=== PATIENT | female | born 1995 | race African-American/Black ===

== ENCOUNTER 2024-07-24 14:40 | Emergency (ER) | payer OTHER ==
[~2024-07-24] VITALS: Ht 170.2 cm; Wt 70.0 kg
[2024-07-24] MEDS ORDERED: ONDANSETRON HCl 4 MG/2 ML SDV IV ONE (14:50)
[2024-07-24] MEDS ORDERED: MORPHINE SULFATE 4 MG/ML VIAL IV ONE (14:50)
[2024-07-24] MEDS ORDERED: Diph, Acellular Pertussis, Tet 0.5 ML/VIAL (Tdap) SDV IM ONE (14:55)
[2024-07-24] MEDS ORDERED: methylPREDNISolone SODIUM SUCC 125 MG/2 ML SDV IV ONE (15:05)
[2024-07-24] MEDS ORDERED: DiphenhydrAMINE HCL 50 MG/ML SDV IV ONE (15:05)
[2024-07-24 15:09] LABS: BASO% 0.3 % (0-3); EOS% 0.7 % (0-8); HEMATOCRIT 32.3 % (37.0-47.0); HEMOGLOBIN 10.2 g/dl (12.0-16.0); IMMATURE GRANULOCYTES 0.2 % (0.0-5.0); LYMPH% 14.4 % (15-41); MEAN CELL VOLUME 92.3 fL CALC (80.0-100.0); MEAN CORPUSCULAR HGB 29.1 pG CALC (26.0-32.0); MEAN CORPUSCULAR HGB CONC 31.6 g/dL CAL (32.0-36.0); MONO% 5.8 % (2-13); NEUT# 8.4 thou/uL (2.00-7.15); NEUT% 78.6 % (42-76); RED BLOOD COUNT 3.5 mill/uL (4.20-5.60); RED CELL DISTRI WIDTH 16.4 % (11.5-15.5)
[2024-07-24 15:15] VITALS: BP 133/82
[2024-07-24 15:20] LABS: ALBUMIN 4.7 g/dL (3.2-5.0); ALKALINE PHOSPHATASE 57 u/l (38-126); ANION GAP 14 (6-22 (CALC)); BILIRUBIN, TOTAL 0.6 mg/dL (0.02-1.3); BUN 10 mg/dL (7-17); BUN/CREATININE RATIO 10 (12-20 (CALC)); CARBON DIOXIDE 24 mmol/l (22-30); CHLORIDE 107 mmol/l (95-108); ESTIMATED GFR 78 ML/MIN (>=90 (CALC)); POTASSIUM 3.3 mmol/l (3.5-5.1); SGOT/AST 46 u/l (14-36); SODIUM 143 mmol/l (137-146); TOTAL PROTEIN 8.8 g/dL (6.3-8.2)
[2024-07-24 15:36] LABS: BETA-HCG, QUANT(RESULT NUMBER) 0 mIU/mL
[2024-07-24] MEDS ORDERED: HYDROmorphone HCL 2 MG/AMP IV ONE (17:05)
[2024-07-24] MEDS ORDERED: CEPHALEXIN500 M1 PO (17:34)
[2024-07-24 17:53] VITALS: BP 133/82
== END 2024-07-24 17:53 | disposition home or self-care (01) | DRG 563 ==
LOC: ED 14:40
PROVIDERS: Family Medicine
DX: S92.414A Nondisplaced fracture of proximal phalanx of right great toe, initial encounter for closed fracture (principal); M25.531 Pain in right wrist; V49.50XA Passenger injured in collision with unspecified motor vehicles in traffic accident, initial encounter
CPT/HCPCS: 90715; J1171; J1200; J2405; Q9967